=== PATIENT | female | born 1940 | race Caucasian/White ===

== ENCOUNTER 2018-11-18 18:54 | Emergency (ER) | payer OTHER, BC ==
--- NOTE | 2018-11-18 19:06 | PDOC ---
History of Present Illness - General History Source: Patient, Family Exam Limitations: No Limitations - History of Present Illness Initial Comments: 11/18/18 19:48 Patient is a 77 year old female with a significant past medical history of who presents to the ED with complaints of left sided flank pain that began x4 days ago on saturday. Patient reports experiencing left sided flank pain that she states has gradually increased in intensity over time as well as began to radiate towards the front and down to her bladder. She reports experiencing frequent urination as well as mild abdominal pain. Patient reports left flank pain is increased with deep inspiration as well as any type of movement. Denies chest pain, Sob. Denies nausea, vomiting. Denies fevers, chills. Denies contact with sick individuals, out of state travelling. Denies any other symptoms. Allergies: cholestyramine, sucrose, ibuprofen, aspirin, Ivxcpio-Zgt-Jcl Reductase Social history: No smoking. No illicit drugs. No alcohol. Surgical history: Colonoscopy s/p 5 years ago. PMD: Dr. West <Vladimir Jensen - Last Filed: 11/18/18 19:55> <Cheryl Teresa - Last Filed: 11/19/18 01:36> - General Chief Complaint: Pain Stated Complaint: KIDNEY STONE Time Seen by Provider: 11/18/18 19:04 Past History <Vladimir Jensen - Last Filed: 11/18/18 19:55> - Past Medical History Anemia: No Asthma: No Cancer: No Cardiac Disorders: No CVA: No COPD: No CHF: No Diabetes: Yes GI Disorders: Yes (GASTRITIS;COLITIS) Disorders: No HTN: Yes Hypercholesterolemia: No Thyroid Disease: No - Surgical History Abdominal Surgery: Yes Cholecystectomy: Yes Neurologic Surgery: No Orthopedic Surgery: Yes (BUNYIONECTOMY) - Suicide/Smoking/Psychosocial Hx Smoking History: Never smoked Have you smoked in the past 12 months: No Hx Alcohol Use: No Drug/Substance Use Hx: No Substance Use Type: None Hx Substance Use Treatment: No <Cheryl Teresa - Last Filed: 11/19/18 01:36> - Past Medical History Allergies/Adverse Reactions: Allergies Allergy/AdvReac Type Severity Reaction Status Date / Time cholestyramine Allergy Intermediate Verified 11/18/18 19:17 [From Questran] sucrose [From Questran] Allergy Intermediate Verified 11/18/18 19:17 ibuprofen [From Advil] Allergy Mild GI BLEED Verified 11/18/18 19:17 aspirin AdvReac Intermediate Verified 11/18/18 19:17 Oyojxbo-Zlo-Zyi Reductase AdvReac Verified 11/18/18 19:17 Inhibitor Home Medications: Ambulatory Orders Folic Acid 1 mg PO DAILY tablet 06/16/14 Glyburide 2.5 mg PO DAILY tablet 06/16/14 Calcium 1 tab PO DAILY 06/28/14 Cholecalciferol (Vitamin D3) [Vitamin D] 1 tab PO DAILY 06/28/14 Enalapril Maleate [Vasotec -] 1 tab PO DAILY 06/28/14 Fenofibrate,Micronized [Lofibra] 134 mg PO DAILY #30 capsule 05/31/15 Ezetimibe [Zetia] 10 mg PO DAILY 11/18/18 Insulin NPH Hum/Reg Insulin Hm [Novolin 70-30 Flexpen] 12 unit SQ HS 11/18/18 Insulin NPH Hum/Reg Insulin Hm [Novolin 70-30 Flexpen] 14 unit SQ DAILY Multivit-Min/Iron/Folic/Lutein [Centrum Silver Women Tablet] 1 each PO DAILY 12/06 Review of Systems - Review of Systems Able to Perform ROS?: Yes Comments:: 11/18/18 19:49 GENERAL/CONSTITUTIONAL: No fever or chills. No weakness. HEAD, EYES, EARS, NOSE AND THROAT: No change in vision. No ear pain or discharge. No sore throat. CARDIOVASCULAR: No chest pain or shortness of breath. RESPIRATORY: No cough, wheezing, or hemoptysis. GASTROINTESTINAL: No nausea, vomiting, diarrhea or constipation. GENITOURINARY: +Urinary frequency. No dysuria, or change in urination. MUSCULOSKELETAL: +Left flank pain. No joint or muscle swelling. No neck or back pain. SKIN: No rash NEUROLOGIC: No headache, vertigo, loss of consciousness, or change in strength/ sensation. ENDOCRINE: No increased thirst. No abnormal weight change. HEMATOLOGIC/LYMPHATIC: No anemia, easy bleeding, or history of blood clots. ALLERGIC/IMMUNOLOGIC: No hives or skin allergy. <Vladimir Jensen - Last Filed: 11/18/18 19:55> *Physical Exam - Vital Signs Last Vital Signs Temp Pulse Resp BP Pulse Ox 98.7 F 66 16 189/73 H 97 11/18/18 18:54 11/18/18 18:54 11/18/18 18:54 11/18/18 18:54 11/18/18 18:54 - Physical Exam Comments: 11/18/18 19:49 GENERAL: Awake, alert, and fully oriented, in no acute distress HEAD: No signs of trauma EYES: PERRLA, EOMI, sclera anicteric, conjunctiva clear ENT: Auricles normal inspection, hearing grossly normal, nares patent, oropharynx clear without exudates. Moist mucosa NECK: Normal ROM, supple, no lymphadenopathy, JVD, or masses LUNGS: Breath sounds equal, clear to auscultation bilaterally. No crackles HEART: Regular rate and rhythm, normal S1 and S2, no murmurs, rubs or gallops ABDOMEN: +Mild left flank and left lower quadrant tenderness without masses, rebounding, or guarding. Soft, nontender, normoactive bowel sounds. MUSCULOSKELETAL: +Left CVA tenderness. EXTREMITIES: Normal range of motion, no edema. No clubbing or cyanosis. No cords, erythema, or tenderness NEUROLOGICAL: Cranial nerves II through XII grossly intact. Normal speech, normal gait SKIN: Warm, Dry, normal turgor, no rashes or lesions noted. <Vladimir Jensen - Last Filed: 11/18/18 19:55> - Physical Exam Comments: 12-lead electrocardiogram performed: Normal sinus rhythm at 63 bpm; axis, intervals and wave forms are all normal except for poor R-wave progression. No evidence of acute ST or T-wave abnormality; no evidence of arrhythmia. <Cheryl Teresa - Last Filed: 11/19/18 01:36> Moderate Sedation - Procedure Monitoring Vital Signs: Procedure Monitoring Vital Signs Temperature 98.7 F 11/18/18 18:54 Pulse Rate 66 11/18/18 18:54 Respiratory Rate 16 11/18/18 18:54 Blood Pressure 189/73 H 11/18/18 18:54 O2 Sat by Pulse Oximetry (%) 97 11/18/18 18:54 <Vladimir Jensen - Last Filed: 11/18/18 19:55> ED Treatment Course - LABORATORY CBC & Chemistry Diagram: 11/18/18 19:45 11/18/18 19:45 - ADDITIONAL ORDERS Additional order review: Laboratory Results 11/18/18 19:10 Urine Color Yellow Urine Appearance Clear Urine pH 7.5 Ur Specific [place] 1.020 Urine Protein Negative Urine Glucose (UA) Negative Urine Ketones Negative Urine Blood Negative Urine Nitrite Negative Urine Bilirubin Negative Urine Urobilinogen 0.2 Ur Leukocyte Esterase Trace H <Vladimir Jensen - Last Filed: 11/18/18 19:55> - LABORATORY CBC & Chemistry Diagram: 11/18/18 19:45 11/18/18 19:45 <Cheryl Teresa - Last Filed: 11/19/18 01:36> Progress Note - Progress Note Progress Note: This 77-year-old with a history of HTN/DM presents with left CVA/flank/LLQ pain for several days. Patient states she has a history of kidney stones in the past. However, this diagnosis was made clinically and she has had no previous history of imaging proving renal stones. Exam as noted. Renal stone protocol CT shows no evidence of kidney or ureteral stones. There is no evidence of hydronephrosis or hydroureter. No other significant abnormality seen on the CT scan. Laboratory evaluation likewise shows no abnormality except for mild prerenal azotemia with BUN of 22 and creatinine is 0.9 Patient given 1 g acetaminophen IV for pain relief. Etiology of the left flank pain and this patient is currently unclear. While it is possible that she had passed a small stone and had some residual pain related to this, since there is no evidence of hydroureter or hydronephrosis, this hypothesis is less likely. Musculoskeletal etiology is possible, especially in light of elevated total CK ( troponin is not elevated). Patient has been advised to avoid strenuous activity over the next few days. She should follow up with her general doctor within the next 5-7 days. If she has worsening pain or other new worrisome symptoms such as vomiting or fever, she should return to the emergency room. Urinalysis was equivocal with some cells and 1+ bacteria but also 1+ epithelial cells. Urine was sent for culture and sensitivity <Cheryl Teresa - Last Filed: 11/19/18 01:36> *DC/Admit/Observation/Transfer - Attestations Scribe Attestion: 11/18/18 19:49 Documentation prepared by Vladimir Jensen, acting as director of medical education for Cheryl Teresa MD. <Vladimir Jensen - Last Filed: 11/18/18 19:55> <Cheryl Teresa - Last Filed: 11/19/18 01:36> Diagnosis at time of Disposition: Left flank pain - Discharge Dispostion Disposition: HOME Condition at time of disposition: Stable - Referrals Referrals: Trent West MD [Primary Care Provider] - 3 days - Patient Instructions Printed Discharge Instructions: DI for Flank Pain Additional Instructions: Rest; drink plenty of water Continue medications as prescribed Avoid strenuous activity involving lifting/pushing or pulling Tylenol as needed for pain Return to ER if you have severe pain/vomiting/fever Follow-up with your doctor within the next 3 days - Post Discharge Activity
[2018-11-18 19:12] VITALS: BP 189/73; PULSE 66; TEMP 98.7; BMI 31.2
[2018-11-18 19:22] LABS: PH,URINE 7.5 (4.5-8); URINE APPEARANCE Clear; URINE BILIRUBIN Negative (NEGATIVE); URINE COLOR Yellow; URINE GLUCOSE (UA) Negative (NEGATIVE); URINE KETONE Negative (NEGATIVE); URINE LEUK ESTERASE TRACE (NEGATIVE); URINE NITRITE Negative (NEGATIVE); URINE PROTEIN Negative (NEGATIVE); URINE UROBILINOGEN 0.2 (0.2-1.0)
[2018-11-18 19:49] LABS: EPI CELLS 1+ /HPF; URINE BACTERIA 1+ /hpf (NEGATIVE); URINE RBC 0-2 /hpf (0-3)
[2018-11-18 20:02] LABS: BASO % 0.4 % (0-2.0); EOS % 1.2 % (0-4.5); HEMATOCRIT 41.5 % (32.4-45.2); HEMOGLOBIN 13.8 GM/dl (10.7-15.3); LYMPH % 31.6 % (8-40); MCH 28.7 pg (25.7-33.7); MCHC 33.3 g/dl (32.0-36.0); MEAN CELL VOLUME 86.2 fl (80-96); MONO % 8.4 % (3.8-10.2); NEUT % 58.4 % (42.8-82.8); PLATELET COUNT 229 K/MM3 (134-434); RBC 4.81 M/mm3 (3.60-5.2); RDW 13.3 % (11.6-15.6); WHITE BLOOD COUNT 6.1 K/mm3 (4.0-10.8)
[2018-11-18 20:12] LABS: ALBUMIN 3.7 g/dl (3.5-5.0); ALK PHOS 84 U/L (32-92); ANION GAP 10 MMOL/L (8-16); BILIRUBIN,TOTAL 0.3 mg/dl (0.2-1.0); BLOOD UREA NITROGEN 22 mg/dl (7-18); CHLORIDE 101 mmol/L (98-107); CO2 27 mmol/L (22-28); CREATININE 0.9 mg/dl (0.6-1.3); GLUCOSE,RANDOM 201 mg/dl (74-106); POTASSIUM 4.2 mmol/L (3.5-5.1); SGOT/AST 38 U/L (10-42); SGPT/ALT 31 U/L (10-40); SODIUM 138 mmol/L (136-145); TOT PROT 6.4 g/dl (6.4-8.3)
[2018-11-18] MEDS ORDERED: ACETAMINOPHEN 1000 MG/100 ML VIAL (NON FORMULARY) IVPB ONE (20:20)
[2018-11-18] MEDS ORDERED: ACETAMINOPHEN INJECTION 100 ML IVPB ONE (20:24)
[2018-11-18 20:36] LABS: CALCIUM 9.4 mg/dl (8.4-10.2)
== END 2018-11-18 21:11 | disposition home or self-care (01) ==
LOC: FER 18:54
PROC: 3E033NZ Introduction of Analgesics, Hypnotics, Sedatives into Peripheral Vein, Percutaneous Approach (ICD-10-PCS; principal; 2018-11-18)
DX: R10.32 Left lower quadrant pain (principal); I10 Essential (primary) hypertension; E11.9 Type 2 diabetes mellitus without complications
CPT/HCPCS: 36415; 74176; 80053; 81003; 81015; 82550; 82553; 84484; 85025; 87086; 96374; 99282-25; J0131

== ENCOUNTER 2019-05-22 12:18 | Emergency (ER) | payer OTHER, BC ==
[2019-05-22 12:34] VITALS: BP 137/52; PULSE 58; TEMP 98.4; BMI 31.2
--- NOTE | 2019-05-22 12:53 | PDOC ---
Attending Attestation - Resident Resident Name: Geo Hooper - ED Attending Attestation I have performed the following: I have examined & evaluated the patient, The case was reviewed & discussed with the resident, I agree w/resident's findings & plan, Exceptions are as noted - HPI HPI: 05/22/19 14:55 78yo female with L eyelid swelling. Pt with a stye to her upper lid. Started on saturday, worsened with some drainage on saturday- saw ophtho dr. sanchez and started on eye neomycin gtts. States worsening eyelid swelling, pain today with redness now around the eye. Pt denies f/c. No nasal pain. No cheek pain. No figueroa. No discharge from the eye. No vision changes. No other complaints. - Physicial Exam PE: 05/22/19 14:56 Gen: aaox3, nad, ambulatory in the ED heent: PERRL, EOMI, mild scleral icterus, mild conjunctivitis to L eye, L upper lid with stye - no discharge, no purulence expressed. upper lid with redness that extends medially and around the eye, soft tissue swelling. No proptosis. R eye no involvement heart: +s1s2 reg lungs: cta b/l abd: soft, nt/nd +bs ext: no c/c/e, neuro: cn ii-xii grossly intact, no focal findings - Medical Decision Making 05/22/19 12:53 a/p: 78yo female with L eyelid swelling, redness and pain -no eye involvement -fluorescein strip to the L eye without signs of corneal abrasion or ulceration under the whitten lamp -snellen eye chart performed -pt with stye to upper lid with surrounding eyelid cellulitis -will obtain ct orbits to eval for orbital cellulitis, however no proptosis or signs of post-septal cellulitis -on eye drops, will need oral abx 05/22/19 14:54 ct shows preseptal cellulitis, no orbital involvement -discussed with the patient -will treat with clindamycin -will send rx to pharmacy -discussed calling with update tomorrow and all reasons to reutrn to the ED immediately -discussed follow up with ophtho on Saturday -answered all questions -daughter and pt agree with the plan -stable for dc to home
--- NOTE | 2019-05-22 13:16 | PDOC ---
History of Present Illness - General Chief Complaint: Eye Problem Stated Complaint: LEFT EYE REDNESS, PAIN Time Seen by Provider: 05/22/19 12:20 History Source: Patient, Family Exam Limitations: No Limitations - History of Present Illness Initial Comments: 05/22/19 13:09 Vivian Caldwell is a 78F with PMH DM, HTN, HLD, GERD who presents with a left upper eyelid infection. 5 days ago patient felt something in her left eye after a parul of wind. 2 days later, her eyelid began to swell and hurt, and 3 days later she saw an eye doctor. At this visit, her vision was checked and was normal, was diagnosed with a stye and sent home with neomycin/polymyxin drops for 7 days. Today patient reports increased facial pain and yellow discharge from the infected eyelid, and is concerned about worsening infection. Has been using the drops as prescribed for 2 days. Reports normally good vision with some blurriness and tearing at this time. Some mild facial pain around the L orbit, but denies cheek or mouth pain or similar symptoms around the R orbit. Denies headache, fevers/chills, nausea/vomiting, photophobia, chest pain, SOB, cough, abd pain. Past History - Past Medical History Allergies/Adverse Reactions: Allergies Allergy/AdvReac Type Severity Reaction Status Date / Time cholestyramine Allergy Intermediate Verified 05/22/19 12:20 [From Questran] sucrose [From Questran] Allergy Intermediate Verified 05/22/19 12:20 ibuprofen [From Advil] Allergy Mild GI BLEED Verified 05/22/19 12:20 aspirin AdvReac Intermediate Verified 05/22/19 12:20 Ejrrsxi-Bbh-Sri Reductase AdvReac Verified 05/22/19 12:20 Inhibitor Home Medications: Ambulatory Orders Folic Acid 1 mg PO DAILY tablet 06/16/14 Glyburide 2.5 mg PO DAILY tablet 06/16/14 Calcium 1 tab PO DAILY 06/28/14 Cholecalciferol (Vitamin D3) [Vitamin D] 1 tab PO DAILY 06/28/14 Enalapril Maleate [Vasotec -] 1 tab PO DAILY 06/28/14 Fenofibrate,Micronized [Lofibra] 134 mg PO DAILY #30 capsule 05/31/15 Ezetimibe [Zetia] 10 mg PO DAILY 11/18/18 Insulin NPH Hum/Reg Insulin Hm [Novolin 70-30 Flexpen] 12 unit SQ HS 11/18/18 Insulin NPH Hum/Reg Insulin Hm [Novolin 70-30 Flexpen] 14 unit SQ DAILY Multivit-Min/Iron/Folic/Lutein [Centrum Silver Women Tablet] 1 each PO DAILY 12/06 Clindamycin [Cleocin -] 150 mg PO Q8H #90 capsule 05/22/19 Aashish/Polymyx B Sulf/Dexameth [Maxitrol Eye Drops -] 1 drop OU QID 05/22/19 Anemia: No Asthma: No Cancer: No Cardiac Disorders: No CVA: No COPD: No CHF: No Diabetes: Yes (type 2) GI Disorders: Yes (GASTRITIS;COLITIS) Disorders: No HTN: Yes Hypercholesterolemia: Yes Thyroid Disease: No Other medical history: GLAUCOMA - Surgical History Abdominal Surgery: Yes Cholecystectomy: Yes Neurologic Surgery: No Orthopedic Surgery: Yes (BUNYIONECTOMY) - Suicide/Smoking/Psychosocial Hx Smoking History: Never smoked Have you smoked in the past 12 months: No Information on smoking cessation initiated: No Hx Alcohol Use: No Drug/Substance Use Hx: No Substance Use Type: None Hx Substance Use Treatment: No Review of Systems - Review of Systems Able to Perform ROS?: Yes Is the patient limited Peruvian proficient: No Constitutional: No: Chills, Fever, Loss of Appetite HEENTM: Yes: Eye Pain, Blurred Vision, Tearing, Recent change in vision. No: Ear Pain, Hearing Loss, Throat Pain, Mouth Pain, Dental Problems Respiratory: No: Cough, Shortness of Breath, Wheezing Cardiac (ROS): No: Chest Pain, Edema, Palpitations ABD/GI: No: Abdominal Distended, Constipated, Diarrhea, Nausea, Poor Appetite, Vomiting Integumentary: Yes: Erythema Neurological: No: Headache *Physical Exam - Vital Signs Last Vital Signs Temp Pulse Resp BP Pulse Ox 98.4 F 58 L 16 137/52 L 98 05/22/19 12:18 05/22/19 12:18 05/22/19 12:18 05/22/19 12:18 05/22/19 12:18 - Physical Exam General Appearance: Yes: Nourished, Appropriately Dressed. No: Apparent Distress HEENT: positive: EOMI (vision intact to correct finger count on L side), RITIKA, Normal Voice, Symmetrical, Pharynx Normal, Orbits (L per-orbital erythema without edema, tender to palpation at upper eyelid to L buddhist, L zygomatic region non-tender to palpation). negative: Pale Conjunctivae, Photophobia, Scleral Icterus (R), Scleral Icterus (L), Pharyngeal Erythema Neck: positive: Trachea midline, Supple Respiratory/Chest: positive: Lungs Clear, Normal Breath Sounds. negative: Respiratory Distress, Accessory Muscle Use, Crackles, Rales, Rhonchi, Wheezing Cardiovascular: positive: Regular Rhythm, Regular Rate. negative: Edema, Murmur , Gallop/S3, Gallop/S4 Extremity: positive: Normal Capillary Refill, Normal Inspection Integumentary: positive: Normal Color, Dry, Warm Neurologic: positive: Fully Oriented, Alert, Normal Mood/Affect, Normal Response Medical Decision Making - Medical Decision Making 05/22/19 13:19 Vivian Caldwell is a 78F with PMH DM, HTN, HLD, GERD who presents with L upper eyelid infection. Infection may have started as a stye, but given that patient has worsening infection and pain spread to L face, suggests worsening to pre-orbital cellulitis. Patient already has neomycin/polymyxin eyedrops but has only been using for 2 days, will start clindamycin 300mg tid. 05/22/19 14:23 Evaluating for orbital cellulitis via CT orbit. Florescein exam performed to evaluate for corneal abrasion or foreign body, none noted. Snellen eye exam shows OD 20/25, OS 20/50. 05/22/19 14:49 CT orbit shows pre-orbital cellulitis, no orbital involvement. Will trial outpatient Abx clindamycin 450mg per day with strict return precautions. *DC/Admit/Observation/Transfer Diagnosis at time of Disposition: Periorbital cellulitis of left eye - Discharge Dispostion Disposition: HOME Condition at time of disposition: Good Decision to Admit order: No - Prescriptions Prescriptions: Clindamycin [Cleocin -] 150 mg PO Q8H #90 capsule - Referrals Referrals: Trent West MD [Primary Care Provider] - - Patient Instructions Printed Discharge Instructions: DI for Orbital Cellulitis Additional Instructions: Today you were evaluated for an eyelid infection, and it looks like your stye has gotten worse and is not an infection of the area around your eye, called pre -orbital cellulitis. We got a CT scan of your head to see if the infection was deeper, and found that the infection is not behind your eye. We also performed a dye exam to check for tears or injuries to your eye, and none were found. Continue to use warm compresses on your eye and the antibiotic drops for the remaining days. Wash your hands and avoid touching your face, and avoid contact with younger family members. We are sending you home with a prescription for clindamycin, an antibiotic, please take 3 pills each in the morning, afternoon, and night for 10 days. If you experience worsening pain, worse vision, fevers, pain in the eye itself, nausea, or any other concerning symptoms, please return to the emergency room immediately for further antibiotics. - Post Discharge Activity
[2019-05-22] MEDS ORDERED: FLUORESCEIN NA 1 EA STRIP ONE (14:09)
[2019-05-22] MEDS ORDERED: FLUORESCEIN NA 1 EA STRIP OS ONE (14:11)
[2019-05-22] MEDS ORDERED: CLINDAMYCIN HCL 150 MG CAPSULE (FP) PO ONE (14:12)
[2019-05-22] MEDS ORDERED: CLINDAMYCIN HCL 150 MG CAPSULE (FP) ONE (14:19)
--- NOTE | 2019-05-24 10:17 | PDOC ---
Patient Follow-up (Call Back) - Post ED Follow - Up Condition at time of discharge: Good Disposition at time of original discharge: HOME Reason for Call Back: Complaint/Condition F/U Signs/Symptoms Improved: Yes - Disposition Additional Instructions/Notes: Spoke with Ms. Caldwell; she states redness and swelling are both greatly improved. She has not had fevers. ED return precautions reviewed.
== END 2019-05-22 15:25 | disposition home or self-care (01) ==
LOC: FER 12:18
DX: L03.213 Periorbital cellulitis (principal); E11.9 Type 2 diabetes mellitus without complications; I10 Essential (primary) hypertension; E78.5 Hyperlipidemia, unspecified; K21.9 Gastro-esophageal reflux disease without esophagitis
CPT/HCPCS: 70480-TC; 99283-25

== ENCOUNTER 2019-08-12 09:21 | Day surgery (SDC) | payer OTHER, BC ==
[2019-08-04 12:43] VITALS: BMI 31.2
[2019-08-12] MEDS ORDERED: GLYCOPYRROLATE 0.2 MG/1 ML VIAL ONE (10:00)
[2019-08-12] MEDS ORDERED: PROPOFOL 20 ML ONE ×2 (10:00→10:01)
[2019-08-12 10:46] VITALS: TEMP 97.6
[2019-08-12 11:03] VITALS: BP 164/76; PULSE 50
--- NOTE | 2019-08-17 13:10 | PATH ---
Surgical Pathology Report Patient Name: DIPAK MENENDEZ [facility]. Rec. #: [id number] /Age/Gender: 1940 (Age: 78) / F Account: [id number] Location: [facility] Taken: 08/12/2019 Received: 08/12/2019 Reported: 08/17/2019 Physicians: Ana Hall M.D. Specimen(s) Received A: SECOND PORTION DUODENUM B: ANTRUM C: GE JUNCTION Clinical History GERD Postoperative diagnosis: Gastritis Final Diagnosis A. SECOND PORTION DUODENUM, BIOPSY: DUODENUM MUCOSA WITH NO SIGNIFICANT PATHOLOGIC CHANGE. NO HISTOLOGIC EVIDENCE OF CELIAC DISEASE. B. ANTRUM, BIOPSY: GASTRIC MUCOSA WITH CHRONIC GASTRITIS. IMMUNOSTAIN FOR H. PYLORI IS NEGATIVE. NEGATIVE FOR INTESTINAL METAPLASIA. C. GE JUNCTION, BIOPSY: COLUMNAR (GASTRIC) MUCOSA WITH MILD CHRONIC INFLAMMATION. NEGATIVE FOR INTESTINAL METAPLASIA. Electronically Signed Fer Curry M.D. Gross Description A. Received in formalin, labeled "second portion duodenum" is a gates, irregular soft tissue measuring 0.3 cm. in greatest dimension. The specimen is submitted in toto in one cassette. B. Received in formalin, labeled "gastric antrum" is a gates, irregular portion of soft tissue measuring 0.4 cm. in greatest dimension. The specimen is submitted in toto in one cassette. C. Received in formalin, labeled "GE junction" is a gates, irregular portion of soft tissue measuring 0.2 cm. in greatest dimension. The specimen is submitted in toto in one cassette. __ CHUCKY/08/13/2019 shane/08/13/2019
== END 2019-08-12 11:08 | disposition home or self-care (01) ==
LOC: FASU-ENDO 09:21
PROVIDERS: ATTEND Internal Medicine Gastroenterology
PROC: 0DB68ZX Excision of Stomach, Via Natural or Artificial Opening Endoscopic, Diagnostic (ICD-10-PCS; 2019-08-12)
PROC: 0DB48ZX Excision of Esophagogastric Junction, Via Natural or Artificial Opening Endoscopic, Diagnostic (ICD-10-PCS; 2019-08-12)
PROC: 0DB98ZX Excision of Duodenum, Via Natural or Artificial Opening Endoscopic, Diagnostic (ICD-10-PCS; principal; 2019-08-12 10:16)
DX: K29.50 Unspecified chronic gastritis without bleeding (principal); K20.8 Other esophagitis; R10.9 Unspecified abdominal pain
CPT/HCPCS: 88305-TC; 88342-TC

== ENCOUNTER 2021-05-05 20:02 | Emergency (ER) | payer OTHER, BC ==
[2021-05-05 20:07] VITALS: BP 157/74; PULSE 79; TEMP 98.3; BMI 37.0
[2021-05-05] MEDS ORDERED: SULFAMETHOXAZOLE/TRIMETHOPRIM 800MG/160MG D.S. TABLET PO ONE (20:08)
[2021-05-05] MEDS ORDERED: TOBRAMYCIN 0.3% OPHTH SOLN 5 ML BOTTLE OS ONE (20:08)
[2021-05-05] MEDS ORDERED: TOBRAMYCIN 0.3% OPHTH SOLN 5 ML BOTTLE ONE (20:21)
[2021-05-05] MEDS ORDERED: SULFAMETHOXAZOLE/TRIMETHOPRIM 800MG/160MG D.S. TABLET ONE (20:22)
== END 2021-05-05 20:28 | disposition home or self-care (01) ==
LOC: FER 20:02
DX: H10.32 Unspecified acute conjunctivitis, left eye (principal)
CPT/HCPCS: 99283-25

== ENCOUNTER 2021-12-29 18:39 | Emergency (ER) | payer OTHER, BC ==
[2021-12-29 18:51] VITALS: BP 149/85; PULSE 69; TEMP 98.1; BMI 30.2
== END 2021-12-29 20:10 | disposition home or self-care (01) ==
LOC: FER 18:39
DX: M25.532 Pain in left wrist (principal)
CPT/HCPCS: 73110-TC-LT-FY; 99283-25

== ENCOUNTER 2022-04-04 09:31 | Day surgery (SDC) | payer OTHER, BC ==
[2022-04-02 12:58] VITALS: BMI 32.2
[2022-04-04 13:20] VITALS: TEMP 97.9
[2022-04-04 13:34] VITALS: BP 139/78; PULSE 70
== END 2022-04-04 13:50 | disposition home or self-care (01) ==
LOC: FASU-ENDO 09:31
PROVIDERS: ATTEND Internal Medicine Gastroenterology
PROC: 0DBL8ZX Excision of Transverse Colon, Via Natural or Artificial Opening Endoscopic, Diagnostic (ICD-10-PCS; 2022-04-04)
PROC: 0DBP8ZX Excision of Rectum, Via Natural or Artificial Opening Endoscopic, Diagnostic (ICD-10-PCS; 2022-04-04)
PROC: 0DBM8ZX Excision of Descending Colon, Via Natural or Artificial Opening Endoscopic, Diagnostic (ICD-10-PCS; 2022-04-04)
PROC: 0DBH8ZX Excision of Cecum, Via Natural or Artificial Opening Endoscopic, Diagnostic (ICD-10-PCS; 2022-04-04)
PROC: 0DBK8ZX Excision of Ascending Colon, Via Natural or Artificial Opening Endoscopic, Diagnostic (ICD-10-PCS; principal; 2022-04-04 12:28)
DX: Z12.11 Encounter for screening for malignant neoplasm of colon (principal); K64.1 Second degree hemorrhoids; K57.30 Diverticulosis of large intestine without perforation or abscess without bleeding; R19.7 Diarrhea, unspecified
CPT/HCPCS: 82962; 88305-TC

== ENCOUNTER 2022-11-26 18:11 | Emergency (ER) | payer OTHER, BC ==
[2022-11-26] MEDS ORDERED: METOCLOPRAMIDE HCL INJECTION 10 MG/2 ML VIAL IVPUSH ONE (18:25)
[2022-11-26] MEDS ORDERED: SODIUM CHLORIDE 0.9% 1000 ML INFUS.BAG IV ONE (18:25)
[2022-11-26] MEDS ORDERED: LIDOCAINE 5% TOPICAL PATCH TP ONE (18:25)
[2022-11-26] MEDS ORDERED: ACETAMINOPHEN 1000 MG/100 ML BAG IVPB ONE (18:25)
[2022-11-26 18:28] VITALS: BP 148/63; PULSE 68; RESP 16; TEMP 98.1; BMI 29.4
[2022-11-26] MEDS ORDERED: LIDOCAINE 5% TOPICAL PATCH ONE (18:49)
[2022-11-26] MEDS ORDERED: METOCLOPRAMIDE HCL INJECTION 10 MG/2 ML VIAL ONE (18:49)
[2022-11-26] MEDS ORDERED: ACETAMINOPHEN INJECTION 100 ML IVPB ONE (18:49)
[2022-11-26 19:15] LABS: HEMATOCRIT 44.6 % (32.4-45.2); MCH 29.5 pg (25.7-33.7); MCHC 33.5 g/dl (32.0-36.0); MEAN PLT VOLUME 7.2 fl (7.5-11.1); RBC 5.07 10^6/uL (3.60-5.2); RDW 14.2 % (11.6-15.6); WHITE BLOOD COUNT 6.9 10^3/uL (4.0-10.8)
[2022-11-26 19:27] LABS: ALBUMIN 4.1 g/dl (3.4-5.0); BILIRUBIN,TOTAL 0.6 mg/dl (0.2-1); CALCIUM 9.3 mg/dl (8.5-10); CREATININE 0.6 mg/dl (0.55-1.3); TOT PROT 6.7 g/dl (6.4-8.2)
[2022-11-26 20:20] LABS: PLATELET ESTIMATE ADEQUATE
[2022-11-26] MEDS ORDERED: LIDOCAINE PATCH REMOVAL MC SCH (22:00)
== END 2022-11-26 20:23 | disposition home or self-care (01) ==
LOC: FER 18:11
PROC: 3E033GC Introduction of Other Therapeutic Substance into Peripheral Vein, Percutaneous Approach (ICD-10-PCS; principal; 2022-11-26)
DX: R51.9 Headache, unspecified (principal); M62.830 Muscle spasm of back
CPT/HCPCS: 36415; 70450-TC; 71045-TC-FY; 80053; 81003; 81015; 84484; 85027; 93005; 99285-25

== ENCOUNTER 2023-11-24 13:47 | Observation (INO) | payer OTHER, BC ==
[2023-11-24 14:39] LABS: HEMATOCRIT 40.5 % (32.4-45.2); HEMOGLOBIN 13.8 G/dL (10.7-15.3); MCH 29.6 pg (25.7-33.7); MCHC 34.1 g/dl (32.0-36.0); MEAN PLT VOLUME 7.6 fl (7.5-11.1); PLATELET COUNT 230.5 10^3/uL (134-434); RBC 4.66 10^6/uL (3.60-5.2); RDW 14.1 % (11.6-15.6); WHITE BLOOD COUNT 7.4 10^3/uL (4.0-10.8)
[2023-11-24 14:54] LABS: INR 1.22 (0.83-1.09); PROTHROMBIN TIME (PATIENT) 14.1 SEC (9.7-13.0)
[2023-11-24 15:02] LABS: ALBUMIN 4.4 g/dl (3.4-5.0); BILIRUBIN,TOTAL 0.4 mg/dl (0.2-1); CALCIUM 9.6 mg/dl (8.5-10.1); CREATININE 0.8 mg/dl (0.6-1.3); POTASSIUM 4.5 mmol/L (3.5-5.1); TOT PROT 7.4 g/dl (6.4-8.2)
[2023-11-24 15:19] LABS: EPITHELIAL CELLS 0-5 /hpf
[2023-11-24 15:38] LABS: N-TERMINAL BNP 145.9 pg/ml (5-450)
[2023-11-24 15:55] LABS: VENOUS BASE EXCESS 2.2 mmol/L (-2-2); VENOUS O2 SATURATION 88.8 % (70-80); VENOUS PCO2 42.8 mmHg (38-52); VENOUS PH 7.419 (7.310-7.410)
[2023-11-24 20:06] VITALS: BMI 32.6
[2023-11-24] MEDS ORDERED: ACETAMINOPHEN 325 MG TABLET (FP) PO PRN (21:04)
[2023-11-24] MEDS ORDERED: DOCUSATE SODIUM 100 MG CAPSULE (FP) PO PRN (21:04)
[2023-11-24] MEDS ORDERED: MELATONIN 5 MG TABLETS PO PRN (21:43)
[2023-11-24 22:06] LABS: MAGNESIUM 1.8 mg/dL (1.8-2.4); PHOSPHOROUS 3.8 mg/dL (2.5-4.9)
[2023-11-24] MEDS: INSULIN ASPART SLIDING SCALE (NOVOLOG) 1 VIAL SQ SCH (22:41)
[2023-11-24] MEDS: FAMOTIDINE 20 MG TABLET PO SCH (22:42)
[2023-11-25] MEDS: INSULIN ASPART SLIDING SCALE (NOVOLOG) 1 VIAL SQ SCH ×4 (07:01→21:06)
[2023-11-25 08:19] LABS: HEMATOCRIT 36.9 % (32.4-45.2); HEMOGLOBIN 12.1 G/dL (10.7-15.3); MCH 28.6 pg (25.7-33.7); MCHC 32.7 g/dl (32.0-36.0); MEAN CELL VOLUME 87.6 fl (80-96); MEAN PLT VOLUME 7.4 fl (7.5-11.1); PLATELET COUNT 213.2 10^3/uL (134-434); RBC 4.21 10^6/uL (3.60-5.2); RDW 14.7 % (11.6-15.6)
[2023-11-25 08:44] LABS: CALCIUM 8.6 mg/dl (8.5-10.1); CREATININE 0.6 mg/dl (0.6-1.3); POTASSIUM 3.9 mmol/L (3.5-5.1)
[2023-11-25] MEDS: amLODIPine BESYLATE 10 MG TABLET (FP) PO SCH (09:22)
[2023-11-25] MEDS: FAMOTIDINE 20 MG TABLET PO SCH ×2 (09:22→21:07)
[2023-11-25] MEDS: FOLIC ACID 1 MG TABLET (FP) PO SCH (09:22)
[2023-11-25] MEDS: metoPROLOL SUCCINATE 25 MG TAB.SR.24H (FP) PO SCH (09:22)
[2023-11-25] MEDS: HEPARIN NA (PORCINE) 5,000 UNITS/ML 1ML VIAL SQ SCH ×2 (10:51→21:05)
[2023-11-25] MEDS: TIMOLOL 0.5% OPHTHALMIC SOL 5 ML BOTTLE OU SCH (10:52)
[2023-11-25] MEDS: HYDROCHLOROTHIAZIDE 12.5 MG CAPSULE (FP) PO SCH (10:52)
[2023-11-25] MEDS: ENALAPRIL MALEATE 5 MG TABLET PO SCH (10:52)
[2023-11-25] MEDS: FUROSEMIDE 40 MG/4 ML INJECTABLE VIAL IVPUSH SCH (16:06)
[2023-11-25] MEDS ORDERED: INSULIN (NOVOLOG MIX 70/30) 100 UNITS/ML MDV SQ SCH (22:00)
[2023-11-25 23:40] VITALS: TEMP 98.2
[2023-11-26] MEDS: INSULIN ASPART SLIDING SCALE (NOVOLOG) 1 VIAL SQ SCH ×2 (06:34→12:01)
[2023-11-26] MEDS ORDERED: INSULIN (NOVOLOG MIX 70/30) 100 UNITS/ML MDV SQ SCH (07:00)
[2023-11-26 08:17] LABS: ALBUMIN 3.8 g/dl (3.4-5.0); BILIRUBIN,TOTAL 0.4 mg/dl (0.2-1); CALCIUM 8.8 mg/dl (8.5-10.1); CREATININE 0.6 mg/dl (0.6-1.3); POTASSIUM 3.4 mmol/L (3.5-5.1); TOT PROT 6.1 g/dl (6.4-8.2)
[2023-11-26] MEDS ORDERED: POTASSIUM CHLORIDE ORAL LIQUID 20 MEQ/15 ML PO ONE (09:00)
[2023-11-26] MEDS: FUROSEMIDE 40 MG/4 ML INJECTABLE VIAL IVPUSH SCH (09:38)
[2023-11-26] MEDS: FOLIC ACID 1 MG TABLET (FP) PO SCH (09:39)
[2023-11-26] MEDS: HYDROCHLOROTHIAZIDE 12.5 MG CAPSULE (FP) PO SCH (09:39)
[2023-11-26] MEDS: FAMOTIDINE 20 MG TABLET PO SCH (09:39)
[2023-11-26] MEDS: amLODIPine BESYLATE 10 MG TABLET (FP) PO SCH (09:39)
[2023-11-26] MEDS: ENALAPRIL MALEATE 5 MG TABLET PO SCH (09:39)
[2023-11-26] MEDS: metoPROLOL SUCCINATE 25 MG TAB.SR.24H (FP) PO SCH (09:39)
[2023-11-26] MEDS: HEPARIN NA (PORCINE) 5,000 UNITS/ML 1ML VIAL SQ SCH (09:39)
[2023-11-26] MEDS: TIMOLOL 0.5% OPHTHALMIC SOL 5 ML BOTTLE OU SCH (09:40)
[2023-11-26 14:51] VITALS: BP 122/54; PULSE 74; RESP 16
[2023-11-27] MEDS ORDERED: FUROSEMIDE 40 MG TABLET (FP) PO SCH (10:00)
== END 2023-11-26 14:30 | disposition home or self-care (01) ==
LOC: FER 13:47 → UNDOADMIN 17:15 → FM/S 17:15 → INTOOBSV 17:15
PROVIDERS: ADMIT Internal Medicine; ATTEND Internal Medicine
PROC: 3E033GC Introduction of Other Therapeutic Substance into Peripheral Vein, Percutaneous Approach (ICD-10-PCS; principal; 2023-11-24)
PROC: 3E023GC Introduction of Other Therapeutic Substance into Muscle, Percutaneous Approach (ICD-10-PCS; 2023-11-24)
PROC: 3E013VG Introduction of Insulin into Subcutaneous Tissue, Percutaneous Approach (ICD-10-PCS; 2023-11-24)
DX: I11.0 Hypertensive heart disease with heart failure (principal); R94.31 Abnormal electrocardiogram [ECG] [EKG]; E11.43 Type 2 diabetes mellitus with diabetic autonomic (poly)neuropathy; K31.84 Gastroparesis; K21.9 Gastro-esophageal reflux disease without esophagitis; H40.9 Unspecified glaucoma; Z88.8 Allergy status to other drugs, medicaments and biological substances
CPT/HCPCS: 0241U-QW; 36415; 71046-TC-FY; 80048; 80053; 81003; 81015; 82550; 82553; 82803; 82962; 83735; 83880; 84100; 84484; 85027; 85610; 93005; 93306-TC; 96372; 96374; 99285-25; G0378; J1644

== ENCOUNTER 2024-06-12 06:23 | Day surgery (SDC) | payer OTHER, BC ==
[2024-06-09 12:26] VITALS: BMI 33.4
[2024-06-12 06:52] VITALS: TEMP 97.1
[2024-06-12] MEDS ORDERED: LIDOCAINE HCL/PF 2% SDV 5ML VIAL ONE (06:53)
[2024-06-12] MEDS ORDERED: PROPOFOL 200 ML ONE (06:53)
[2024-06-12] MEDS ORDERED: PHENYLEPHRINE HCL 10 MG/1 ML SINGLE DOSE VIAL ONE (07:18)
[2024-06-12] MEDS ORDERED: ePHEDrine SULFATE 50 MG/1 ML AMPULE ONE (07:18)
[2024-06-12 08:00] VITALS: PULSE 67; RESP 18
[2024-06-12 08:26] VITALS: BP 140/78
== END 2024-06-12 08:27 | disposition home or self-care (01) ==
LOC: FASU-ENDO 06:23
PROVIDERS: ATTEND Internal Medicine Gastroenterology
PROC: 0DBN8ZX Excision of Sigmoid Colon, Via Natural or Artificial Opening Endoscopic, Diagnostic (ICD-10-PCS; principal; 2024-06-12 07:42)
DX: Z12.11 Encounter for screening for malignant neoplasm of colon (principal); K63.5 Polyp of colon; K57.30 Diverticulosis of large intestine without perforation or abscess without bleeding; K64.1 Second degree hemorrhoids
CPT/HCPCS: 82962; 88305-TC

== ENCOUNTER → 2025-05-05 | Day surgery (SDC) | payer OTHER, BC | END | disposition home or self-care (01) | LOC: JRADIR 10:15 | PROVIDERS: ATTEND Internal Medicine Endocrinology, Diabetes & Metabolism | PROC: 0G9K3ZX Drainage of Thyroid Gland, Percutaneous Approach, Diagnostic (ICD-10-PCS; principal; 2025-05-05) | DX: E04.1 Nontoxic single thyroid nodule (principal) | CPT/HCPCS: 10005; 76942; 88173; 88305-TC ==